=== PATIENT | male | born 1985 | race Caucasian/White ===

== ENCOUNTER 2016-09-12 09:50 | Day surgery (SDC) | payer OTHER ==
[~2016-09-12] VITALS: Ht 185.4 cm; Wt 79.0 kg
[~2016-09-12 09:50] MED LIST: AMBIEN 10MG10 MG PO; CEPHALEXIN500 M1 PO; COGENTIN .0.5 MG/TAB PO; DESYREL 50MG50 MG PO; PAXIL 20MG20 MG PO; TOPROL XL 50MG50 MG PO; ZYPREXA2.5 MG PO
[2016-09-12] MEDS ORDERED: ULTRAM 50MG TAB50 MG PO (10:24)
[2016-09-12 10:48] LABS: HEMATOCRIT 43.1 % (42.0-52.0); HEMOGLOBIN 14.4 g/dl (13.5-18.0); MEAN CELL VOLUME 89 fl (80.0-100.0); MEAN CORPUSCULAR HEMOGLOBIN 30 pg (27.0-31.0); MEAN CORPUSCULAR HGB CONC 33 g/dl (33.0-37.0); MEAN PLATELET VOLUME 11.5 fl (7.4-10.4); PLATELET COUNT 233 K/mm3 (130-400); RED BLOOD COUNT 4.87 M/mm3 (4.20-5.60); REDCELL DISTRIBUTION WIDTH-CV 13.3 % (11.5-14.5); WHITE BLOOD COUNT 9.2 K/mm3 (4.8-10.8)
[2016-09-12 11:04] VITALS: BP 130/82; PULSE 74; TEMP 98
[2016-09-12 11:40] VITALS: BP 129/95; PULSE 58
[2016-09-12 12:05] VITALS: BP 123/54; PULSE 66
== END 2016-09-12 12:11 | disposition home or self-care (01) ==
LOC: EUO 09:50
PROVIDERS: Internal Medicine Interventional Cardiology
DX: I47.1 Supraventricular tachycardia (principal); F17.210 Nicotine dependence, cigarettes, uncomplicated; Z95.9 Presence of cardiac and vascular implant and graft, unspecified; Z95.810 Presence of automatic (implantable) cardiac defibrillator
CPT/HCPCS: J0690

== ENCOUNTER 2019-01-14 13:09 | Outpatient (RCR) | payer OTHER ==
[~2019-01-14 13:09] MED LIST changes: +ULTRAM 50MG TAB50 MG PO
== END 2019-04-14 | disposition still patient (30) ==
LOC: WSOH
DX: M25.541 Pain in joints of right hand (principal); X50.0XXA Overexertion from strenuous movement or load, initial encounter; Y92.214 College as the place of occurrence of the external cause; Y93.89 Activity, other specified; Y99.0 Civilian activity done for income or pay; I45.6 Pre-excitation syndrome

== ENCOUNTER 2020-04-26 08:39 | Emergency (ER) | payer BC ==
[~2020-04-26] VITALS: Ht 190.5 cm; Wt 94.5 kg
[2020-04-26 09:02] VITALS: BP 119/80; TEMP 98.4
[2020-04-26] MEDS ORDERED: BACTRIM DS 8001 TAB PO (09:24)
[2020-04-26 13:52] VITALS: PULSE 88
== END 2020-04-26 10:02 | disposition home or self-care (01) ==
LOC: COL.ER 08:39
DX: T81.49XA Infection following a procedure, other surgical site, initial encounter (principal); L08.9 Local infection of the skin and subcutaneous tissue, unspecified; F17.210 Nicotine dependence, cigarettes, uncomplicated
CPT/HCPCS: J0696

== ENCOUNTER 2021-01-23 04:57 | Emergency (ER) | payer BC ==
[~2021-01-23] VITALS: Ht 182.9 cm; Wt 93.2 kg
[~2021-01-23 04:57] MED LIST changes: +BACTRIM DS 8001 TAB PO
[2021-01-23 05:10] VITALS: BP 120/72; TEMP 97.9
[2021-01-23 05:48] LABS: BASO % 0.5 % (0.0-2.0); EOS # 0.3 (0.0-0.7); EOS % 4.2 % (0-4.0); GRAN # 3.2 (1.4-6.5); GRAN % 48.8 % (42.2-75.2); HEMATOCRIT 44.4 % (42.0-52.0); HEMOGLOBIN 14.7 g/dl (13.5-18.0); LYMPH # 2.6 (1.2-3.4); MEAN CELL VOLUME 89 fl (80.0-100.0); MEAN CORPUSCULAR HEMOGLOBIN 30 pg (27.0-31.0); MEAN CORPUSCULAR HGB CONC 33 g/dl (33.0-37.0); MEAN PLATELET VOLUME 10.5 fl (7.4-10.4); MONO # 0.4 (0.1-0.6); MONO % 6.2 % (1.7-9.3); PLATELET COUNT 267 K/mm3 (130-400); RED BLOOD COUNT 4.97 M/mm3 (4.20-5.60)
[2021-01-23 05:58] LABS: BILIRUBIN,TOTAL 0.3 mg/dL (0.0-1.0); CALCIUM 8.7 mg/dL (8.4-10.2); CREATININE, serum 0.59 (0.66-1.25); POTASSIUM 3.9 mmol/L (3.4-5.0); TOTAL PROTEIN 7.3 gm/dL (6.4-8.2)
[2021-01-23] MEDS ORDERED: ZOFRAN ODT4 MG PO (06:33)
[2021-01-23 07:07] VITALS: PULSE 68
== END 2021-01-23 07:09 | disposition home or self-care (01) ==
LOC: COL.ER 04:57
PROVIDERS: Personal Emergency Response Attendant
DX: R53.1 Weakness (principal); R11.0 Nausea; R51.9 Headache, unspecified
CPT/HCPCS: J2405; J7030

== ENCOUNTER 2022-01-17 14:29 | Outpatient (RCR) | payer OTHER ==
[~2022-01-17 14:29] MED LIST changes: +ZOFRAN ODT4 MG PO
== END 2022-01-23 | disposition home or self-care (01) ==
LOC: WSOH
DX: S86.112D Strain of other muscle(s) and tendon(s) of posterior muscle group at lower leg level, left leg, subsequent encounter (principal); M22.2X2 Patellofemoral disorders, left knee; Y99.0 Civilian activity done for income or pay; F41.9 Anxiety disorder, unspecified; Z98.890 Other specified postprocedural states

== ENCOUNTER 2022-02-17 13:58 | Outpatient (RCR) | payer OTHER | END 2022-02-23 | disposition home or self-care (01) | LOC: WSPT | DX: S86.112D Strain of other muscle(s) and tendon(s) of posterior muscle group at lower leg level, left leg, subsequent encounter (principal); M22.2X2 Patellofemoral disorders, left knee; X58.XXXD Exposure to other specified factors, subsequent encounter ==

== ENCOUNTER 2022-03-26 14:16 | Outpatient (RCR) | payer OTHER | END 2022-03-26 17:00 | disposition home or self-care (01) | LOC: WSPT 14:16 | DX: M25.562 Pain in left knee (principal) ==

== ENCOUNTER 2023-08-24 16:00 | Day surgery (SDC) | payer BC ==
[~2023-08-24] VITALS: Ht 188 cm; Wt 90.0 kg
[2023-08-24] VITALS (7 sets, daily range): BP systolic 120–146; BP diastolic 56–87; PULSE 59–80; TEMP 98–981
[2023-08-24] MEDS ORDERED: MOTRIN 600600 MG/TAB PO (16:22)
[2023-08-24] MEDS ORDERED: MELATONIN5 M1 PO (16:23)
[2023-08-24] MEDS ORDERED: BRIXADI128 MG/0.3 SQ (16:28)
[2023-08-24] MEDS ORDERED: LR 1,000 ML IV ONE (16:45)
[2023-08-24] MEDS ORDERED: LR 1,000 ML IV SCH (17:00)
--- NOTE | 2023-08-24 17:15 | NUR ---
Patient to the Or with Or nurse. Patient admitted to room 349. Admission completed. Laura started IV to Rac per patient request. LR to gravity. Dr.Pauls olivo, plan of care reviewed. Consent obtained. Patient at bedside. Will await his return from OR
[2023-08-24] MEDS ORDERED: fentaNYL 50 MCG/ML 2 ML VIAL ONE (17:38)
[2023-08-24] MEDS ORDERED: Lidocaine PF 2% (20 MG/ML) 5 ML VIAL ONE (17:38)
[2023-08-24] MEDS ORDERED: Rocuronium 50 MG/5 ML Multi-Dose VIAL ONE (17:38)
[2023-08-24] MEDS ORDERED: dexAMETHasone 10 MG/ML VIAL ONE (18:20)
[2023-08-24] MEDS ORDERED: Ondansetron 4 MG/2 ML VIAL ONE (18:20)
[2023-08-24] MEDS ORDERED: Meperidine 50 MG/ML 1 ML VIAL IV PRN (18:30)
[2023-08-24] MEDS ORDERED: Ondansetron 4 MG/2 ML VIAL IV PRN ×2 (18:30→19:30)
[2023-08-24] MEDS ORDERED: droPERidol 2.5 MG/ML 2 ML VIAL IV PRN (18:30)
[2023-08-24] MEDS ORDERED: HYDROmorphone 2 MG/1 ML VIAL IV PRN (18:30)
[2023-08-24] MEDS ORDERED: fentaNYL 50 MCG/ML 2 ML VIAL IV PRN (18:30)
[2023-08-24] MEDS ORDERED: Ketorolac 30 MG/ML VIAL ONE (18:32)
[2023-08-24] MEDS ORDERED: Glycopyrrolate 0.2 MG/ML 1 ML VIAL ONE ×2 (18:33→18:41)
[2023-08-24] MEDS ORDERED: Neostigmine 1 MG/ML 10 ML Multi-Dose Vial ONE (18:41)
[2023-08-24] MEDS ORDERED: Morphine 4 MG/ML VIAL IV PRN (19:30)
[2023-08-24] MEDS ORDERED: Ibuprofen 600 MG TAB PO PRN (19:30)
[2023-08-24] MEDS ORDERED: Acetaminophen 500 MG TAB PO PRN (19:30)
[2023-08-24] MEDS ORDERED: Home HYDROcodone/Acetaminophen 5/325 MG #4 TABS/PACK PO ONE (20:00)
--- NOTE | 2023-08-24 20:00 | NUR ---
Patient to room 349 from PACU. Assessment complete. A&Ox4. Denies nausea/shortness of breath. VS stable. Bandaids to lap sites x3-drainage noted to sites. Plan of care discussed for discharge after criteria is met. Verbalizes understanding. Will continue to monitor.
--- NOTE | 2023-08-24 21:00 | NUR ---
Patient has met discharge criteria. Has tolerated PO without nausea. Has voided without difficulty. Rating pain 4/10-intermittent to shoulder. Encouraged ambulation. Discharge vitals WNL. Discharge instructions given both verbal and handwritten. Discussed f/u appt, s/s of infection, home medications, activity and dressings. Bandaid to umbilicus site changed at this time due to drainage. Extra bandaids supplied with instructions to remove tomorrow. INT to right AC DCd cath intact. Home norco pack provided per dr deluca. Escorted off [place] in wheelchair in stable condition accompanied by spouse.
== END 2023-08-24 21:15 | disposition home or self-care (01) ==
LOC: SURG 16:00 → SDCO 16:00 → EDSTATUS 16:30 → SURG 21:15 → SDCO 21:15
DX: K35.80 Unspecified acute appendicitis (principal); F17.210 Nicotine dependence, cigarettes, uncomplicated
CPT/HCPCS: OP; G0378; J0690; J1100; J1885; J2405; J2704; J2710; J3010; J7120